=== PATIENT | female | born 1995 | race Caucasian/White ===

== ENCOUNTER 2022-11-21 01:35 | Inpatient (IN) ==
[2022-11-21] MEDS ORDERED: OXYTOCIN 30 UNITS/500 ML BAG IV PRN ×2 (02:09→08:38)
[2022-11-21] MEDS ORDERED: LACTATED RINGER'S 1,000 ML IV PRN (02:09)
[2022-11-21] MEDS ORDERED: LIDOCAINE 1% LOCAL 20 ML VIAL INFIL PRN (02:09)
[2022-11-21] MEDS ORDERED: AZITHROMYCIN 250 MG TAB PO ONE (02:12)
[2022-11-21] MEDS ORDERED: PENICILLIN G POTASSIUM 6 MU in DEXTROSE 5% 250 ML IV STA (02:18)
[2022-11-21 02:35] LABS: Hematocrit (blood only) 31.5 % (34.1-44.9); Hemoglobin 10.7 g/dl (12.0-16.0); Mean Corpuscular Hemoglobin 30.6 pg (25.0-34.0); Mean Platelet Volume 10.3 fL (9.4-12.3); Platelet Count 246 K/uL (130-400); RDW Coefficient of Variation 13.2 % (11.5-14.5)
--- NOTE | 2022-11-21 02:37 | History & Physical Report ---
Date of Service November 21, 2022 Assessment & Plan (1) Supervision of normal intrauterine in multigravida: Plan: IUP at 36 0/7 weeks with SPROM and now onset of irregular contractions GBS and chlam RNA have been obtained prior to starting antibiotic prophylaxis with both azithromycin and PCN G patient planning unmedicated . will try to get 2 doses of the PCN G prior to delivery if possible. Admission and Anticipated Discharge Date Admission Date: November 21, 2022 History of Present Illness Chief Complaint: SPROM Primary Care Provider: NO PCP Patient is a 27 yo female EDC 12/19/22 who presents at 36 0/7 weeks with SPROM for clear fluid at midnight tonight. not feeling alot of contractions and no bloody show. complicated by (+) chlam X2. last treated 10/03/22. she was to have repeat ORTIZ at her upcoming 36 week visit. she has a history of HSV and has not started valtrex prophylaxis yet although she has had no recent symptoms of an HSV outbreak nor has she at this time. GBS status unknown as this was also to be done at her upcoming appointment. Allergies Allergy/AdvReac Type Severity Reaction Status Date / Time No Known Allergies Allergy Verified 11/13/22 14:23 Home Medications Medication Instructions Recorded Confirmed Type prenat.vits,rebecca,[id number] 1 tab PO DAILY 05/07/22 11/18/22 History metoclopramide HCl 10 mg tablet 10 mg PO Q6H PRN nausea and 05/14/22 11/13/22 Rx (Reglan) vomiting #30 tabs azithromycin 500 mg tablet 1,000 mg PO DAILY #2 tabs 10/08/22 11/13/22 Rx valacyclovir 1 gram tablet 1,000 mg PO BID 40 days #40 tabs 11/13/22 11/13/22 Rx Patient History Medical History Genital herpes Surgical History No pertinent past surgical history Family History Aunt Cervical cancer Grandmother Autoimmune disease Social History Smoking Status: Current every day smoker Tobacco Type: Cigarettes Cigarettes Per Day: 4; Second Hand Exposure: No; Do You Dip or Chew Tobacco: No; Tobacco Cessation Education Requested by Patient: No Hx Alcohol Use: No Hx Substance Use: No Preferred Language: Greenlandic Communication Ability: Effective District Court Justice Required: No Beliefs That Will Affect Care: None marital status: Single marital status details: Booker (36) [phone] Current Living Situation: Significant Other Current Living Situation Comment: lvies with FOB, 1 dog, fish, snake. current occupational status: unemployed Other Information That Helps Us Care for You: No Feels Safe at Home: Yes Safety Concerns: Feels Safe At This Time Review of Systems All systems reviewed & are unremarkable except as noted in HPI & below Physical Exam Constitutional: WD/WN, vitals as above Psychiatric: A+Ox3, euthymic affect Genitourinary: OB Exam Abdomen: + vertex, + estimated weight (6-7 pounds) and + irregular contractions Manual OB Exam: + cervical dilation 4 cm, + cervical effacement 70% and + station -1 OB Exam Monitor Tracing: + external FHT monitor used, + external uterine monitor used, + category I and + normal FHT variability Results & Data ([facility]) Vital Signs (Past 12 Hours) Vital Signs Temp Pulse Resp BP 11/21/22 01:48 98.6 F 20 11/21/22 01:45 83 123/70 Code Status & VTE Plan VTE Prophylaxis Plan VTE Prophylaxis will be ordered: No Coding Level of Care Code None Diagnoses Supervision of normal intrauterine in multigravida Z34.80
[2022-11-21] MEDS ORDERED: SODIUM CHLORIDE 0.9% INJ 10 ML VIAL ONE (05:05)
[2022-11-21] MEDS ORDERED: ePHEDrine sulfate 50 MG/ML AMP ONE (05:05)
[2022-11-21] MEDS ORDERED: BUPIVACAINE 0.25% 30 ML VIAL ONE (05:05)
[2022-11-21] MEDS ORDERED: fentaNYL citrate 100 MCG/2 ML VIAL ONE (05:05)
[2022-11-21] MEDS ORDERED: LIDOCAINE 2%/EPINEPHRINE 1:200,000 20 ML SDV ONE (05:05)
[2022-11-21] MEDS ORDERED: fentaNYL 2MCG/ML ROPIVACAINE 1.25MG/ML 100 ML BAG EPI ONE (05:06)
[2022-11-21] MEDS ORDERED: PENICILLIN G POTASSIUM 3 MU in DEXTROSE 5% 100 ML IV PRN (05:09)
[2022-11-21] MEDS ORDERED: fentaNYL 2MCG/ML ROPIVACAINE 1.25MG/ML 100 ML BAG EPI PRN (05:18)
[2022-11-21] MEDS ORDERED: ePHEDrine sulfate 50 MG/ML AMP IV PRN (05:18)
[2022-11-21] MEDS ORDERED: NALOXONE HCL 0.4 MG/1 ML VIAL/CARP IV PRN (05:18)
[2022-11-21] MEDS ORDERED: ONDANSETRON INJ 2 MG/ML 2 ML VIAL IV PRN (05:18)
[2022-11-21] MEDS ORDERED: NALOXONE HCL 1 MG in SODIUM CHLORIDE 0.9% 1000ML 1,000 ML IV PRN (05:18)
[2022-11-21] MEDS ORDERED: diphenhydrAMINE 50 MG/ML VIAL IV PRN (05:18)
[2022-11-21] MEDS ORDERED: NALBUPHINE HCL INJ 10 MG/ML AMP IV PRN (05:18)
--- NOTE | 2022-11-21 05:19 | Anesthesiology Consultation ---
Date of Service November 21, 2022 Assessment & Plan (1) Encounter for pre-operative examination: Chart Review Chart Review: Patient NOT seen in Pre Admission Testing and Acceptable Risk for Labor Epidural Consults Requested none History Height/Weight Height: 5 ft 1 in Weight: 51.71 kg Allergies Allergy/AdvReac Type Severity Reaction Status Date / Time No Known Allergies Allergy Verified 11/13/22 14:23 Medications Home Medications Medication Instructions Recorded Confirmed Last Taken prenat.vits,rebecca,[id number] 1 tab PO DAILY 05/07/22 11/18/22 11/18/22 0600 metoclopramide HCl 10 mg tablet 10 mg PO Q6H PRN nausea and 05/14/22 11/13/22 Unknown (Reglan) vomiting #30 tabs azithromycin 500 mg tablet 1,000 mg PO DAILY #2 tabs 10/08/22 11/13/22 Unknown valacyclovir 1 gram tablet 1,000 mg PO BID 40 days #40 tabs 11/13/22 11/13/22 Unknown Past Medical History Medical History Genital herpes Exercise / Class Metabolic Activity II 4-5 Yardwork/Stairs/Walk up hill Past Family History Family History Aunt Cervical cancer Grandmother Autoimmune disease Past Surgical History Surgical History No pertinent past surgical history Past Anesthesia History No Hx of Anesthesia Complications and No Family Hx of Anesthesia Complications History of PONV No Hx of PONV and No Hx of Motion Sickness Social History Smoking Status: Current every day smoker tobacco type: cigarettes Smoking cigarettes per day: 4 Do You Dip or Chew Tobacco: No Hx Alcohol Use: No Hx Substance Use: No Physical Exam Vital Signs Last Vital Signs Temp 36.9 C 11/21/22 04:06 Pulse 95 H 11/21/22 05:33 Resp 20 11/21/22 01:48 BP 123/79 11/21/22 05:23 Pulse Ox 98 11/21/22 05:33 Testing Laboratory Results 11/21/22 02:22
[2022-11-21] MEDS ORDERED: HYDROCORTISONE ACETATE 25 MG SUPP PR PRN (08:38)
[2022-11-21] MEDS ORDERED: DIPHTHERIA/TETANUS/PERTUSSIS 0.5mL SYR/VIAL (Age 7+yrs) IM ONE (08:38)
[2022-11-21] MEDS ORDERED: ACETAMINOPHEN 325 MG TAB PO PRN (08:38)
[2022-11-21] MEDS ORDERED: IBUPROFEN 600 MG TAB PO PRN (08:38)
[2022-11-21] MEDS ORDERED: BENZOCAINE 20% AER SPR 82.5 GM CAN EXT PRN (08:38)
--- NOTE | 2022-11-21 09:15 | Delivery Summary ---
Vaginal Delivery Summary Date of Service November 21, 2022 Vaginal Delivery Summary and 1st Degree LAC Patient is a 27-year-old 2 para 1-0-0-1 female EDC of 12/19/2022 who presents at 36-0/7 weeks with spontaneous rupture of membranes for clear fluid. GBS status is unknown so penicillin prophylaxis was started. She also had had chlamydia positive twice during the and was to have a repeat RNA done at 36 weeks. She was given 1000 mg of azithromycin for prophylaxis as well. She received epidural analgesia and progressed to complete dilation at about the same time as a second dose of penicillin was given. She pushed effectively over intact perineum for delivery of a viable male . After the head was delivered the rest the infant delivered easily and was placed on the mother's abdomen for further attention and drying. The infant was vigorous and moving all 4 limbs. After cord blood was obtained, the placenta was expressed intact with a three-vessel cord. A first-degree right labial laceration was repaired with 3-0 chromic in usual fashion. Estimated blood loss was 200 cc. bleeding was controlled with dilute Pitocin and fundal massage. Mother and infant were doing well after delivery. [facility] [place] Vaginal Delivery Charge Delivery Type Details: and 1st Degree LAC
--- NOTE | 2022-11-21 10:13 | Anesthesia Procedure Note ---
Date of Service November 21, 2022 Anesthesia Post Epidural Note Vital Signs Vital Signs: Temp Pulse Resp BP Pulse Ox 36.9 C 87 20 113/65 100 11/21/22 09:14 11/21/22 09:58 11/21/22 09:43 11/21/22 09:58 11/21/22 08:43 Pain Intensity Bilateral Abdomen: Pain Intensity: 0 Notes Mental Status: alert / awake / arousable and participated in evaluation Nausea / Vomiting: adequately controlled Pain: adequately controlled Airway Patency, RR, SpO2: stable & adequate BP & HR: stable & adequate Hydration State: stable & adequate Neuraxial Anesthesia: was administered and sensory block is resolving Anesthetic Complications: no major complications apparent and Pt Satisfied with anesthetic care Epidural: Removed without complications and With tip intact
[2022-11-21] MEDS: DOCUSATE SODIUM 100 MG CAP PO SCH (22:42)
--- NOTE | 2022-11-22 05:44 | Obstetrical Progress Note ---
Date of Service <Beata Ch DO - Last Filed: 11/22/22 06:51> November 22, 2022 Assessment & Plan <Beata Ch DO - Last Filed: 11/22/22 06:51> (1) care following vaginal delivery: Patient is PPD 1 s/p and doing well. - Eating well, voiding well, ambulating well - Vitals reviewed and within normal limits - Pain well controlled with analgesics - OOB, ambulation, diet progression as tolerated - Blood type: A+, GBS pending (treated in delivery), rubella non-immune (MMR ordered) - Chlamydia pos earlier in , no ORTIZ, current G/C swab pending - Plan to discharge today - After discharge, 6 week follow up with Dr. Serrano (2) Need for rubella vaccination: <Kaitlynn Smith, DO - Last Filed: 11/22/22 07:49> (1) care following vaginal delivery: (2) Need for rubella vaccination: Subjective <Beata Lopezdomenicomaegan - Last Filed: 11/22/22 06:51> Patient is a 27 yo female who is now PPD #1 following spontaneous vaginal delivery at 37+0 weeks. Reports feeling well this morning. She endorses mild abdominal cramping and 0/10 pain well managed on analgesics. Voiding without issue. Tolerating regular meals overnight and able to ambulate some. She has passed gas and no bowel movements. Persistent lochia with some improvement this morning. Currently breast feeding. Review of Systems Denies fever, chills, sweats. Denies SOB, difficulty breathing, chest pain, palpitations, and chest pressure. Denies breast pain. Denies dysuria. Denies headache or changes in vision. Physical Exam <Beata LopezdomenicoDO maegan - Last Filed: 11/22/22 06:51> General: Alert and oriented. No acute distress. CV: Regular rate and rhythm. No murmurs. Respiratory: CTA bilaterally. No rhonchi, wheezes, or crackles. No increased work of breathing. Abdomen: Positive bowel sounds. Soft, nontender, non distended. Uterus: Fundus firm and palpable 1 cm below the umbilicus. Lower extremities: No LE edema. No deep calf pain. Reina's negative bilaterally. Results & Data ([facility]) <Beata Ch DO - Last Filed: 11/22/22 06:51> Vital Signs (Past 12 Hours) Vital Signs Temp Pulse Resp BP Pulse Ox O2 Del Method 11/22/22 03:50 36.6 C 66 16 116/74 97 Room Air 11/21/22 23:02 36.7 C 67 16 104/67 98 Room Air 11/21/22 19:22 36.6 C 85 16 117/78 99 Room Air <Kaitlynn Smith, - Last Filed: 11/22/22 07:49> Co-Signing Physician Notes Resident Physician Supervision Note: I interviewed and examined the patient. Discussed with Dr. Ch and agree with findings and plan as documented in the note. Any exceptions or clarifications are listed here: PPD#1 doing well. Desires DC home, reviewed DC instructions. Documented By: Kaitlynn Smith DO Resident Activity Tracking <Beata Ch DO - Last Filed: 11/22/22 06:51> Resident Involvement: Resident Care Provided Care Provided: OB Delivery
[2022-11-22] MEDS ORDERED: MEASLES, MUMPS & RUBELLA VIRUS VIAL SQ ONE (06:46)
[2022-11-22 07:32] LABS: Hematocrit (blood only) 30.5 % (34.1-44.9); Mean Corpuscular Hemoglobin 30.1 pg (25.0-34.0); Mean Corpuscular Hgb Conc 32.8 g/dL (32.0-36.0); Mean Corpuscular Volume 91.9 fL (80.0-100.0); Mean Platelet Volume 10.3 fL (9.4-12.3); Platelet Count 230 K/uL (130-400); RDW Coefficient of Variation 13.2 % (11.5-14.5); RDW Standard Deviation 44.3 fL (36.4-46.3); Red Blood Count 3.32 M/uL (3.93-5.22); White Blood Count 16.02 K/ul (4.8-10.8)
[2022-11-22] MEDS ORDERED: PRENATAL VITAMIN 1 TAB PO SCH (08:00)
[2022-11-22] MEDS: DOCUSATE SODIUM 100 MG CAP PO SCH (08:38)
[2022-11-22 11:56] LABS: GC (Neis gonorrhoeae) RNA Not Detected (NotDetected)
[2022-11-22] MEDS ORDERED: bisacodyL 5 MG TABEC PO SCH (20:00)
[2022-11-23] MEDS ORDERED: bisacodyL 10 MG SUPP PR PRN (08:00)
== END 2022-11-22 15:05 | disposition home or self-care (01) | DRG 807 ==
LOC: OPB 01:35 → 4S1 01:38 → 4E2 10:59